=== PATIENT | male | born 1960 | race African-American/Black ===

== ENCOUNTER → 2019-07-20 | Outpatient (CLI) | payer OTHER ==
[2014-04-30 21:05] VITALS: BP 163/100
[~2019-07-20] MED LIST: HYDR-3164 PO; LISI-338 PO; METF500T16 PO; SIMV10TA15 PO; SITA100T PO
== END ==
LOC: LAB 14:31
PROVIDERS: ATTEND Orthopaedic Surgery
DX: Z01.818 Encounter for other preprocedural examination (principal); Z11.59 Encounter for screening for other viral diseases; G56.01 Carpal tunnel syndrome, right upper limb; R20.0 Anesthesia of skin
CPT/HCPCS: C9803; U0003; 36415

== ENCOUNTER 2019-07-25 06:02 | Day surgery (SDC) | payer OTHER ==
[~2019-07-25] VITALS: Ht 180.3 cm; Wt 104.5 kg
[~2019-07-25 06:02] MED LIST changes: -HYDR-3164 PO
[2019-07-25] MEDS ORDERED: PROCHLORPERAZINE 10 MG/2 ML VIAL. IV PRN (07:00)
[2019-07-25] MEDS ORDERED: LIDOCAINE 1% PF 2 ML VIAL. ID PRN (07:00)
[2019-07-25] MEDS ORDERED: IV RINGERS,LACTATED 1000ML 1,000 ML IV SCH (07:00)
[2019-07-25] MEDS ORDERED: HYDROmorphone 2 MG/ML VIAL IV PRN (07:00)
[2019-07-25] MEDS ORDERED: fentaNYL PF VIAL 100 MCG/2 ML VIAL IV PRN (07:00)
[2019-07-25] MEDS ORDERED: ONDANSETRON PF 4 MG/2 ML VIAL. IV PRN (07:00)
[2019-07-25] MEDS ORDERED: MORPHINE SULFATE 2 MG/ML VIAL. IV PRN (07:00)
[2019-07-25] MEDS ORDERED: LIDOCAINE 1% PF 30 ML VIAL. ONE (07:07)
[2019-07-25] MEDS ORDERED: BUPIVACAINE MPF 0.25% 30 ML VIAL. ONE (07:08)
[2019-07-25] MEDS ORDERED: MIDAZOLAM HCL/PF 2 MG/2 ML VIAL. ONE (07:11)
[2019-07-25] MEDS ORDERED: PROPOFOL 10 MG/ML (20ML) VIAL. IV ONE (07:11)
[2019-07-25] MEDS ORDERED: HYDR-3164 PO (07:28)
--- NOTE | 2019-07-25 07:30 | DISCH ---
DISCHARGE INSTRUCTIONS Condition on Discharge Condition on Discharge: Stable Activity After Discharge Activity Instructions for Disc: Other, see below (Fine motor use allowed like eating typing writing no hard grasping or lifting permitted) Lifting Instructions after Dis: No heavy lifting, No pulling or pushing Diet after Discharge Diet after Discharge: Diabetic No Calorie Level Wound Incision Care Wound/Incision Care: Keep wound elevated, Do not change dressing (Keep dressing clean and dry) Contacting the DRJace after DC Call your doctor for: Concerns you may have Follow-Up Follow up with: Dr. Thomason 10 days CHACE THOMASON MD Jul 25, 2019 07:30
[2019-07-25] MEDS: INSULIN LISPRO 100 UNIT/ML 3ML VIAL for OP,RR ONLY. SQ PRN ×2 (07:33→08:50)
--- NOTE | 2019-07-25 08:07 | PDOC4 ---
Operative Note Operative Note Date of surgery: 07/25/2019 Preoperative diagnosis: Right carpal tunnel syndrome Postoperative diagnosis: Same with moderate median nerve compression Operative procedure: Right carpal tunnel release Surgeon: Katelin moreira Anesthesia: Leena block Estimated blood loss: 1 cc Complications: None Operative indications: Patient is 59-year-old [id number] male with right hand numbness in the median nerve distribution unresponsive to nonoperative management. I discussed with him the possibility of operative treatment with carpal tunnel release risk benefits postoperative course the fact that the nerve has to come back on its own after the pressure is released from it the possibility of nerve damage infection incisional pain medical or other anesthetic complications among others all his questions were answered he wishes to proceed with surgical evaluation and treatment Operative text: Patient was identified procedure verified patient placed in the supine position on the operating table. After the right upper extremity was exsanguinated and adequate amounts of Leena block anesthesia were performed the right upper extremity was prepped and draped in standard sterile fashion. After timeout was performed patient procedure identified and verified and a longitudinal incision was made just distal to the distal wrist crease in line with longer's lines dissection carried out down to the transverse carpal ligament which was divided longitudinally and verified to be released to its proximal and distal extent both visibly and palpably. Median nerve was noted to have moderate compression the flexor tendons in the carpal tunnel were noted to be free from synovitis or other defect. There irrigation carried out normal saline solution closure accomplished with nylon suture in a vertical mattress fashion sterile soft dressings were applied patient was returned to recovery room in stable condition having tolerated the procedure well and fingers were noted to be warm pink following deflation of the tourniquet. Wilfrido moreira was present for the procedure assisted in the prepping draping retraction and closure CHACE LONGORIA MD Jul 25, 2019 08:07
[2019-07-25] MEDS ORDERED: PROPOFOL 50 ML IV ONE (08:09)
[2019-07-25] MEDS ORDERED: fentaNYL PF VIAL 100 MCG/2 ML VIAL ONE (08:21)
[2019-07-25] MEDS: fentaNYL PF VIAL 100 MCG/2 ML VIAL IV PRN ×2 (08:25→08:38)
[2019-07-25 08:50] VITALS: BP 179/101
[2019-07-25] MEDS ORDERED: HYDROcodone/APAP 5/325MG 1 TAB TABLET PO ONE (09:15)
[2019-07-25] MEDS ORDERED: HYDROcodone/APAP 5/325MG 1 TAB TABLET ONE (09:16)
== END 2019-07-25 09:40 | disposition home or self-care (01) ==
LOC: SURG 06:02
PROVIDERS: ATTEND Orthopaedic Surgery
DX: G56.01 Carpal tunnel syndrome, right upper limb (principal); I10 Essential (primary) hypertension; G47.30 Sleep apnea, unspecified; E11.9 Type 2 diabetes mellitus without complications; E66.9 Obesity, unspecified; Z68.30 Body mass index [BMI] 30.0-30.9, adult; Z72.89 Other problems related to lifestyle; Z87.891 Personal history of nicotine dependence; Z79.84 Long term (current) use of oral hypoglycemic drugs
CPT/HCPCS: 64721; 82962; J0696; J2250; J2704; J3010; J3490; J1815